=== PATIENT | female | born 2000 | race Caucasian/White ===

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

== ENCOUNTER 2021-04-05 00:55 | Emergency (ER) | payer BC, MEDICAID ==
[2021-04-05 00:58] VITALS: BP 101/72; PULSE 87
--- NOTE | 2021-04-05 01:30 | EDM.PDOC ---
ED HPI GENERAL MEDICAL PROBLEM - General Chief Complaint: ENT Problem Stated Complaint: sore throat Time Seen by Provider: 04/05/21 01:12 Source of Information: Reports: Patient History Limitations: Reports: No Limitations - History of Present Illness INITIAL COMMENTS - FREE TEXT/NARRATIVE: This patient is a 20 year old female that presents to the ER. Patient reports that she started Wednesday having sore throat and losing her voice. She reports also having some mild congestion, drainage, cough nonproductive. She reports having a fever on Wednesday. She reports that she was seen in [place] Wednesday the , had a negative strep test and discharged home. She reports then on the , she was seen by provider in [place], told she had laryngitis, enlarged tonsils per patient and given injection of steroids and started on pill steroids. She reports that her voice has been returning since starting the steroids, but the pain in her throat continues. She reports its constant, but worse with swallowing, eating, or drinking. She reports both sides of her throat hurt. Onset Date: 03/30/21 Duration: Improving (voice returning), Other (continuing sore throat) Location: Reports: Other (throat pain) Quality: Reports: Sharp Severity: Moderate Improves with: Reports: None Worsens with: Reports: Eating Associated Symptoms: Reports: Cough, Nausea/Vomiting. Denies: Confusion, Chest Pain, cough w sputum, Diaphoresis, Fever/Chills, Headaches, Loss of Appetite, Malaise, Rash, Seizure, Shortness of Breath, Syncope, Weakness - Related Data Allergies Allergy/AdvReac Type Severity Reaction Status Date / Time No Known Allergies Allergy Verified 04/05/21 00:59 Home Meds: Home Meds Amoxicillin 1,000 mg PO DAILY 10 Days #20 capsule 04/05/21 [Rx] Benzonatate 100 mg PO TID PRN 04/05/21 [History] Norelgestromin/Ethin.Estradiol [Zafemy 150-35 Mcg/Day Patch] 1 patch TRDERM ASDIRECTED 04/05/21 [History] predniSONE [Prednisone] 40 mg PO DAILY 04/05/21 [History] Past Medical History - Past Health History Medical/Surgical History: Denies Medical/Surgical History HEENT History: Reports: None Cardiovascular History: Reports: None Respiratory History: Reports: None Gastrointestinal History: Reports: None Genitourinary History: Reports: None PAPER PATTERN FOLDER History: Reports: None Musculoskeletal History: Reports: None Neurological History: Reports: None Psychiatric History: Reports: None Endocrine/Metabolic History: Reports: None Hematologic History: Reports: None Immunologic History: Reports: None Oncologic (Cancer) History: Reports: None Dermatologic History: Reports: None - Infectious Disease History Infectious Disease History: Reports: None - Past Surgical History Head Surgeries/Procedures: Reports: None HEENT Surgical History: Reports: Other (See Below) Other HEENT Surgeries/Procedures: wisdom teeth removal Female Surgical History: Reports: D&C Social & Family History - Family History Family Medical History: No Pertinent Family History - Tobacco Use Tobacco Use Status *Q: Never Tobacco User - Caffeine Use Caffeine Use: Reports: Coffee, Energy Drinks, Soda - Recreational Drug Use Recreational Drug Use: No - Living Situation & Occupation Living situation: Reports: with Family Occupation: Student ED ROS ENT - Review of Systems Review Of Systems: See Below Constitutional: Reports: Fever (Wednesday), Decreased Appetite HEENT: Reports: Rhinitis, Sinus Problem, Throat Pain Respiratory: Reports: Cough. Denies: Shortness of Breath, Sputum Cardiovascular: Reports: No Symptoms Endocrine: Reports: No Symptoms GI/Abdominal: Reports: Abdominal Pain, Decreased Appetite, Nausea. Denies: Diarrhea, Vomiting : Reports: No Symptoms Musculoskeletal: Reports: No Symptoms Skin: Reports: No Symptoms Neurological: Reports: No Symptoms Psychiatric: Reports: No Symptoms Hematologic/Lymphatic: Reports: No Symptoms Immunologic: Reports: No Symptoms ED EXAM, ENT - Physical Exam Exam: See Below Exam Limited By: No Limitations General Appearance: Alert, WD/WN, No Apparent Distress, Anxious Eye Exam: Bilateral Eye: Normal Inspection, PERRL Ears: Normal External Exam, Normal Canal, Hearing Grossly Normal, Normal TMs Nose: Normal Inspection, Normal Mucousa, No Blood Mouth/Throat: Normal Inspection, Normal Gums, Normal Lips, Normal Oropharynx, Normal Teeth, Throat Pain, Other (No unilateral swelling or abscess seen. Unremarkable exam.). No: Bleeding, Dental Abcess, Dental Pain, Dental Tenderness, Dental Trauma, Drooling, Dry Mucous Membrane, Gum Swelling, Hoarse Voice, Lip Swelling, Lip Ulcers, Muffled Voice, Oral Ulcers, Perioral Cyanosis, Peritonsillar Mass, Pharyngeal Erythema, Teething, Throat Swelling, Tongue Swelling, Tonsillar Erythema, Tonsillar Exudates, Tonsillar Swelling (+0), Trismus, Uvular Deviation, Uvular Edema Head: Atraumatic, Normocephalic Neck: Normal Inspection, Supple, Full Range of Motion, Tender Lateral (bilateral tenderness). No: Limited Range of Motion, Lymphadenopathy (L), Lymphadenopathy (R), Tender Midline, Thyromegaly Respiratory/Chest: No Respiratory Distress, Lungs Clear, Normal Breath Sounds, No Accessory Muscle Use Cardiovascular: Normal Peripheral Pulses, Regular Rate, Rhythm, No Edema, No Gallop, No JVD, No Murmur, No Rub GI/Abdominal: Normal Bowel Sounds, Soft, No Organomegaly, No Distention, No Mass, Pelvis Stable, Tender (diffuse mild. No well localized location. ). No: Distended, Guarding, Rigid, Rebound, Hernia, Hepatomegaly, Splenomegaly (Female) Exam: Deferred Rectal (Female) Exam: Deferred Back: Normal Inspection, Full Range of Motion. No: CVA Tenderness (L), CVA Tenderness (R) Extremities: Normal Inspection, Normal Range of Motion, Non-Tender, No Pedal Edema, Normal Capillary Refill Neurological: Alert, Oriented, Normal Cognition, Normal Gait, No Motor/Sensory Deficits Psychiatric: Anxious. No: Depressed Mood, Flat Affect, Tearful Skin: Warm, Dry, Intact, Normal Color, No Rash Lymphatic: No Adenopathy Course - Vital Signs Last Recorded V/S: Last Vital Signs Temp 98.2 F 04/05/21 00:57 Pulse 87 04/05/21 00:57 Resp 16 04/05/21 00:57 BP 101/72 04/05/21 00:57 Pulse Ox 99 04/05/21 00:57 - Orders/Labs/Meds Labs: Laboratory Tests 04/05/21 04/05/21 04/05/21 Range/Units 01:20 01:20 01:20 WBC 8.8 (4.0-11.0) 10^3/uL RBC 4.07 (4.00-5.50) x10^6/uL Hgb 11.9 L (12.0-16.0) g/dL Hct 35.3 L (37.0-47.0) % MCV 86.7 (83.0-97.0) fL MCH 29.2 (27.0-32.0) pg MCHC 33.7 (32.0-36.0) g/dL RDW Coeff of Pasquale 12.2 (11.0-15.0) % Plt Count 224 (150-400) 10^3/uL Immature Gran % (Auto) 0.0 (0.0-4.9) % Neut % (Auto) 77.1 H (41-71) % Lymph % (Auto) 16.9 L (24-44) % Thurston % (Auto) 5.9 (0-10) % Eos % (Auto) 0.0 (0-6) % Baso % (Auto) 0.1 (0-1) % Neut # (Auto) 6.81 (1.80-8.00) x10^3/uL Lymph # (Auto) 1.49 (0.60-5.00) 10^3/uL Thurston # (Auto) 0.52 (0.00-1.50) 10^3/uL Eos # (Auto) 0.00 (0.00-1.50) 10^3/uL Baso # (Auto) 0.01 (0.00-0.50) 10^3/uL Immature Gran # (Auto) 0.00 (0.00-0.49) 10^3/uL Sodium 143 (136-145) mEq/L Potassium 3.7 (3.5-5.0) mEq/L Chloride 104 (98-106) mEq/L Carbon Dioxide 25 (21-32) mmol/L BUN 14 (7-18) mg/dL Creatinine 0.9 (0.6-1.0) mg/dL Est Cr Clr Drug Dosing 72.11 mL/min Estimated GFR (MDRD) > 60 (>=60) mL/min Glucose 119 H D (75-99) mg/dL Calcium 9.4 (8.4-10.1) mg/dL Total Bilirubin 0.6 (0.0-1.0) mg/dL AST 14 L (15-37) U/L ALT 15 (12-78) U/L Alkaline Phosphatase 68 (46-116) U/L Total Protein 8.0 (6.4-8.2) g/dL Albumin 4.4 (3.4-5.0) g/dL Monoscreen Negative SARS CoV-2 RNA Rapid MELISSA (NEGATIVE) 04/05/21 Range/Units 01:21 WBC (4.0-11.0) 10^3/uL RBC (4.00-5.50) x10^6/uL Hgb (12.0-16.0) g/dL Hct (37.0-47.0) % MCV (83.0-97.0) fL MCH (27.0-32.0) pg MCHC (32.0-36.0) g/dL RDW Coeff of Pasquale (11.0-15.0) % Plt Count (150-400) 10^3/uL Immature Gran % (Auto) (0.0-4.9) % Neut % (Auto) (41-71) % Lymph % (Auto) (24-44) % Thurston % (Auto) (0-10) % Eos % (Auto) (0-6) % Baso % (Auto) (0-1) % Neut # (Auto) (1.80-8.00) x10^3/uL Lymph # (Auto) (0.60-5.00) 10^3/uL Thurston # (Auto) (0.00-1.50) 10^3/uL Eos # (Auto) (0.00-1.50) 10^3/uL Baso # (Auto) (0.00-0.50) 10^3/uL Immature Gran # (Auto) (0.00-0.49) 10^3/uL Sodium (136-145) mEq/L Potassium (3.5-5.0) mEq/L Chloride (98-106) mEq/L Carbon Dioxide (21-32) mmol/L BUN (7-18) mg/dL Creatinine (0.6-1.0) mg/dL Est Cr Clr Drug Dosing mL/min Estimated GFR (MDRD) (>=60) mL/min Glucose (75-99) mg/dL Calcium (8.4-10.1) mg/dL Total Bilirubin (0.0-1.0) mg/dL AST (15-37) U/L ALT (12-78) U/L Alkaline Phosphatase (46-116) U/L Total Protein (6.4-8.2) g/dL Albumin (3.4-5.0) g/dL Monoscreen SARS CoV-2 RNA Rapid MELISSA Negative (NEGATIVE) - Re-Assessments/Exams Free Text/Narrative Re-Assessment/Exam: 04/05/21 01:48 WBC normal, no fever today, negative strep. However, I will prescribe abx due to negative mono, negative COVID, the patient has been having sore throat for 6 days, reported fever, now her 3rd visit, and elevated neutrophils. No clinical indication of a peritonsillar abscess. Will have her f/u PCP this week. 04/05/21 02:01 Patient educated about discharge, answered all her questions. Patient explained about pharmacy in [place] being closed over the weekend, she says she will pick it up Wednesday. Explained I can send prescription to [place], but she says she can not make it there tomorrow. I then offered to send to [email or web address] or [facility] her hard copy script to fill at an open pharmacy, but she denied. She reports she does not use [email or web address] for anything. I wrote her hardcopy script in case she changes her mind. Departure - Departure Time of Disposition: 01:51 Disposition: Home, Self-Care 01 Condition: Fair Clinical Impression: Laryngitis Pharyngitis Qualifiers: Pharyngitis/tonsillitis etiology: unspecified etiology Qualified Code(s): J02.9 - Acute pharyngitis, unspecified - Discharge Information *PRESCRIPTION DRUG MONITORING PROGRAM REVIEWED*: Not Applicable *COPY OF PRESCRIPTION DRUG MONITORING REPORT IN PATIENT ERNESTO: Not Applicable Prescriptions: Amoxicillin 1,000 mg PO DAILY 10 Days #20 capsule Instructions: Pharyngitis, [id number], Sore Throat, [id number], Laryngitis, [id number] Referrals: PCP,None [Primary Care Provider] - Forms: ED Department Discharge Additional Instructions: Followup with your primary care provider for further evaluation Return to the ER for worsening of condition or any emergent concerns such as airway closing, fever, or other concerns Increase fluids Continue medications as prescribed Over the counter throat numbing sprays as needed Tylenol or Motrin for pain Amoxicillin 500mg 2 pills once a day for 10 days #20 no refill: Transmitted to [facility] per your request Sepsis Event Note (ED) - Evaluation Sepsis Screening Result: No Definite Risk - Focused Exam Vital Signs: Vital Signs Temp Pulse Resp BP Pulse Ox 04/05/21 00:57 98.2 F 87 16 101/72 99 - Assessment/Plan Plan: PLEASE SEE RN NOTE FOR PFSH
[2021-04-05 01:50] LABS: CHLORIDE,CL 104 mEq/L (98-106); SODIUM,NA 143 mEq/L (136-145)
== END 2021-04-05 02:06 | disposition home or self-care (01) ==
LOC: CC.ED 00:55
DX: J06.0 Acute laryngopharyngitis (principal); Z20.822 Contact with and (suspected) exposure to COVID-19
CPT/HCPCS: 36415; 80053; 85025; 86308; 87430; 99283; U0002

== ENCOUNTER 2024-01-28 03:07 | Emergency (ER) | payer BC ==
[2024-01-28 03:34] LABS: APPEARANCE,URINE CLEAR (CLEAR); BILIRUBIN,URINE NEGATIVE (NEGATIVE); COLOR,URINE YELLOW (YELLOW); GLUCOSE,URINE NEGATIVE (NEGATIVE); KETONES,URINE NEGATIVE (NEGATIVE); LEUKOCYTE ESTERASE,URINE SMALL (NEGATIVE); NITRITE,URINE NEGATIVE (NEGATIVE); OCCULT BLOOD,URINE MODERATE (NEGATIVE); PROTEIN,URINE NEGATIVE (NEGATIVE); UROBILINOGEN,URINE 0.2 EU/dL (0.2-1.0)
[2024-01-28 03:36] LABS: BASOPHILS ABSOLUTE AUTO 0.01 10^3/uL (0.00-0.50); BASOPHILS PERCENT AUTO 0.1 % (0-1); EOSINOPHILS ABSOLUTE AUTO 0.05 10^3/uL (0.00-1.50); EOSINOPHILS PERCENT AUTO 0.6 % (0-6); HEMATOCRIT 38.9 % (37.0-47.0); HEMOGLOBIN 12.4 g/dL (12.0-16.0); IMMATURE GRAN ABSOLUTE AUTO 0.01 10^3/uL (0.00-0.49); IMMATURE GRAN PERCENT AUTO 0.1 % (0.0-4.9); LYMPHOCYTES ABSOLUTE AUTO 1.48 10^3/uL (0.60-5.00); LYMPHOCYTES PERCENT AUTO 16.4 % (24-44); MEAN CORPUSCULAR HEMOGLOBIN 28.2 pg (27.0-32.0); MEAN CORPUSCULAR HGB CONC 31.9 g/dL (32.0-36.0); MEAN CORPUSCULAR VOLUME 88.6 fL (83.0-97.0); MONOCYTES ABSOLUTE AUTO 0.52 10^3/uL (0.00-1.50); MONOCYTES PERCENT AUTO 5.7 % (0-10); NEUTROPHILS ABSOLUTE AUTO 6.98 x10^3/uL (1.80-8.00); NEUTROPHILS PERCENT AUTO 77.1 % (41-71); PLATELET COUNT,PLT 201 10^3/uL (150-400); RED BLOOD CELL COUNT 4.39 x10^6/uL (4.00-5.50); WHITE BLOOD CELL COUNT,WBC 9.1 10^3/uL (4.0-11.0)
[2024-01-28] MEDS: Sodium Chloride 0.9% 1,000 ML IV ONE (03:43)
[2024-01-28] MEDS: Ondansetron 4 MG/2 ML SDV IVPUSH STA (03:47)
[2024-01-28] MEDS: Morphine 2 MG/ML SYRINGE IVPUSH ONE (03:50)
[2024-01-28 03:53] LABS: ALBUMIN 4.5 g/dL (3.4-5.0); BILIRUBIN TOTAL 0.3 mg/dL (0.0-1.0); CALCIUM 8.6 mg/dL (8.4-10.1); CREATININE 0.9 mg/dL (0.6-1.0); EST CRCL DRUG DOSING (CG) 76.57 mL/min; POTASSIUM,K 3.6 mEq/L (3.5-5.0); PROTEIN TOTAL,TP 7.8 g/dL (6.4-8.2)
[2024-01-28 03:55] LABS: MUCUS,URINE FEW /HPF (NOT SEEN); SQUAMOUS EPITHELIAL CELLS,UR FEW /HPF (NOT SEEN); WBC,URINE 0-5 /HPF (0-5)
[2024-01-28] MEDS: HYDROmorphone 0.5 MG/0.5 ML Syringe IVPUSH ONE (04:04)
[2024-01-28 04:09] VITALS: BP 110/76; PULSE 81
[2024-01-28] MEDS: Iopamidol 755 Mg/ML 100 ML Bottle IVPUSH ONE (04:27)
== END 2024-01-28 05:45 | disposition home or self-care (01) ==
LOC: CC.ED 03:07
DX: R10.32 Left lower quadrant pain (principal); R11.0 Nausea; Z91.040 Latex allergy status; Z79.899 Other long term (current) drug therapy
CPT/HCPCS: 36415; 74177; 80053; 81001; 83690; 83735; 85025; 96361; 96374; 96375; 99284-25; J1170; J2270; J2405; J7030; Q9967